=== PATIENT | female | born 1990 | race Caucasian/White ===

== ENCOUNTER 2021-03-08 09:40 | Emergency (ER) | payer SELFPAY ==
--- OUTSIDE RECORDS SUMMARY | 2021-03-08 09:43 | XMS REPORT | Continuity of Care Document ---
:1990 Author Organization [facility] t Address [address] [place] [address] Care Team Providers Name Role Phone WAI Attending Clinician Unavailable BRIAN Attending Clinician Unavailable WAI Admitting Clinician Unavailable OSCAR Admitting Clinician Unavailable EARNEST Admitting Clinician Unavailable Problems Condition Condition Condition Status Onset Resolution Last Treating Co mments Source Name Details Category Date Date Treatment Clinician Date Dyspnea Dysp[facility] Problem [facility] ([facility]) Acute Acute Problem Active [facility] anxiety [facility] (LUF/LI V/SA) Seizure Seizure Problem [facility] (LUF/LI V/SA) Abdominal Abdominal Problem Active [facility] (LUF/LI V/SA) Seizure Seizure Problem [facility] (LUF/LI V/SA) Allergies, Adverse Reactions, Alerts This patient has no known allergies or adverse reactions. Social History Smoking Status Start Date Stop Date Source Never sm[facility] (LUF/[facility]/SA) Medications Ordered Filled Start Stop Current Ordering Indication Dosage Frequency Signature Comments Components Source Medication Medication Date Date Medication? Clinician (SIG) Name Name lamotrigine lamotrigine Yes 25mg 1xD orally [facility] Levetiracet Levetiracet Yes 1000mg 2xD orally [address] [facility] am times per [facility]SA) Vital Signs Vital Name Observation Time Observation Value Comments Source O2% BldC Oximetry 2019-11-16 04:21:00 100 % [facility] (LUF/TANISHA/SA) Pulse Rate 2019-11-16 04:20:00 86 /min [facility] (LUF/TANISHA/SA) Respiratory Rate 2019-11-16 04:20:00 14 /min [facility] (LUF/TANISHA/SA) BP Systolic 2019-11-16 04:20:00 125 mm[Hg] [facility] (LUF/TANISHA/SA) BP Diastolic 2019-11-16 04:20:00 73 mm[Hg] [facility] (LUF/TANISHA/SA) Body Temperature 2019-11-16 02:47:00 98.4 [degF] [facility] (LUF/TANISHA/SA) Height 2019-11-16 02:47:00 63 [in_i] [facility] (LUF/TANISHA/SA) Weight 2019-11-16 02:47:00 115 kg [facility] (LUF/TANISHA/SA) BMI (Body Mass Index) 2019-11-16 02:47:00 44.9 kg/m2 [facility] (LUF/TANISHA/SA) Pulse Rate 2018-11-05 00:37:00 95 /min [facility] (LUF/TANISHA/SA) BP Systolic 2018-11-05 00:37:00 138 mm[Hg] [facility] (LUF/TANISHA/SA) BP Diastolic 2018-11-05 00:37:00 73 mm[Hg] [facility] (LUF/TANISHA/SA) Body Temperature 2018-11-05 00:33:00 97.9 F [facility] (LUF/TANISHA/SA) O2% BldC Oximetry 2018-11-05 00:33:00 95 % [facility] (LUF/TANISHA/SA) Height 2018-11-05 00:33:00 66 in [facility] (LUF/TANISHA/SA) Weight Measured 2018-11-05 00:33:00 220 lbs [facility] Re[facility] (LUF/TANISHA/SA) BMI (Body Mass Index) 2018-11-05 00:33:00 35.7 kg/m2 [facility] (LUF/TANISHA/SA) Respiratory Rate 2018-11-04 23:45:00 15 /min [facility] (LUF/TANISHA/SA) Pulse Rate 2018-09-20 13:22:00 84 /min [facility] (LUF/TANISHA/SA) Respiratory Rate 2018-09-20 13:22:00 22 /min [facility] (LUF/TANISHA/SA) O2% BldC Oximetry 2018-09-20 13:22:00 97 % [facility] (LUF/TANISHA/SA) BP Systolic 2018-09-20 13:22:00 119 mm[Hg] [facility] (LUF/TANISHA/SA) BP Diastolic 2018-09-20 13:22:00 73 mm[Hg] [facility] (LUF/TANISHA/SA) Body Temperature 2018-09-20 11:01:00 97 F [facility] (LUF/TANISHA/SA) Height 2018-09-20 11:01:00 66 in [facility] (LUF/TANISHA/SA) Weight Measured 2018-09-20 11:01:00 249.91 lbs [facility] (LUF/TANISHA/SA) BMI (Body Mass Index) 2018-09-20 11:01:00 40.6 kg/m2 [facility] (LUF/TANISHA/SA) Pulse Rate 2018-08-19 07:55:00 68 /min [facility] (LUF/TANISHA/SA) Respiratory Rate 2018-08-19 07:55:00 13 /min [facility] (LUF/TANISHA/SA) BP Systolic 2018-08-19 07:55:00 110 mm[Hg] [facility] (LUF/TANISHA/SA) BP Diastolic 2018-08-19 07:55:00 49 mm[Hg] [facility] (LUF/TANISHA/SA) Body Temperature 2018-08-19 06:32:00 97.9 F [facility] (LUF/TANISHA/SA) O2% BldC Oximetry 2018-08-19 06:32:00 100 % [facility] (LUF/TANISHA/SA) Height 2018-08-19 06:32:00 66 in [facility] (LUF/TANISHA/SA) Weight Measured 2018-08-19 06:32:00 250 lbs [facility] (LUF/TANISHA/SA) BMI (Body Mass Index) 2018-08-19 06:32:00 40.6 kg/m2 [facility] (LUF/TANISHA/SA) Procedures This patient has no known procedures. Encounters Start End Encounter Admission Attending Care Care Encounter Source Date/Time Date/Time Type Type Clinicians Facility Department ID 2019-11-16 2019-11-16 ANXIETY 1 CARRENOJUICE [facility] [id number] 02:46:00 04:40:00 DISORDER [facility], [address], ([place] [address] 2018-11-05 2018-11-05 EPILEPSY ZIBUBAHMANKY, [facility] [id number] [facility] [address] 00:32:00 02:26:00 UNS NOT ARACELY MICHELET Cha ukes - INTRACT N, [address], (LUF[place] [address] 2018-09-20 2018-09-20 LOWER 1 OSCAR PEREZ [facility] [id number] [facility] [address] 10:49:00 13:50:00 ABDOMINAL MICHELET Billingsley - PAIN N, [address], ([place] [address] 2018-08-19 2018-08-19 EPILEPSY 3 EARNEST, [facility] [id number] 06:17:00 08:13:00 UNS NOT MALIA MICHELET RICHARDS L [facility] - INTRACT N, [address], (LUF[place] [address] Results Test Description Test Time Test Comments Results Result Sourc e Comments XR CHEST AP/PA 1 2019-11-16 EXAMINATION: XR CHEST VIEW 06:15:40 AP/PA 1 VIEWINDICATION: [id number]: DyspneaCOMPARISON: NoneFINDINGS:TUBES and LINES: None.LUNGS: Low lung volumes. Lungs are clear. No consolidations.PLEURA: No pleural effusion or pneumothorax.HEART AND MEDIASTINUM: The cardiomediastinal silhouette is unremarkable.BONES AND SOFT TISSUES: No acute osseous lesion. Soft tissues areunremarkable.UPPER ABDOMEN: No free air under the diaphragm.IMPRESSION:Lo w lung volumes.This final report was electronically signed by Dr Arben Barrientos DO 11/16/20196:09 AMDictated By: ARBEN BARRIENTOSDate: 11/16/2019 06:09 DRUG SCREEN MED 2019-11-16 04:30:00 Test Item Value Reference Range Interpretation Comme nts PH (test code = UPH) 6.0 Specific Archer (test >=1.030 code = USPGR) FT (test code = AMPHET) Negative (qualifier value) FT (test code = SALLY) Negative (qualifier value) FT (test code = BENZO) Negative (qualifier value) FT (test code = HOSSEIN) Negative (qualifier value) FT (test code = MTD) Negative (qualifier value) FT (test code = OPIAT) Negative (qualifier value) FT (test code = PCP) Negative (qualifier The following table provides an value) interpretive gu trey for the Drugs of Abuse ran on the Siemens [place] a nalyzer listed there in: A mphetamines < 1000 ng/ml = Negative Barbituates < 200 ng/ml = Negative B enzodiazapines < 200 ngml = Negative Cocaine < 300 ng/ml = Negative M ethadone < 300 ng/ml = Negative Opiate < 300 ng/ml = Negative P CP < 25 ng/ml = Negative THC < 50 ng/ml = Negative Resul ts equal to or greater than th e above cut-off values = Presum ptive Positive. Confirmation of Presumptive Positive result s are available upon request. FT (test code = THC) Negative (qualifier value) URINALYSIS WITH [id number] 04:15:00 Test Item Value Reference Range Interpretation Comments Color (test code = UCOLR) Yellow Clarity (test code = UCLAR) Clear Glucose (test code = UGLUC) NEGATIVE NEGATIVE N Bilirubin (test code = UBILI) NEGATIVE NEGATIVE N Ketones (test code = UKET) TRACE NEGATIVE A Specific Archer (test code = >=1.030 1.005-1.030 A USPGR) Blood (test code = UBLD) NEGATIVE NEGATIVE N PH (test code = UPH) 6.0 4.5-8.0 A Protein (test code = UPROT) NEGATIVE NEGATIVE N Urobilinogen (test code = U UROB) 0.2 >0.2 N Nitrite (test code = UNITR) NEGATIVE NEGATIVE N Leukocyte Esterase (test code = NEGATIVE NEGATIVE N ULEUK) WBC (test code = WBCUR) None seen 0-5 A RBC (test code = RBCUR) None seen 0-5 A Epithial Cells (test code = U EPI) 5-10 0-10 A Bacteria (test code = UBACT) None seen None Seen,Trace A TEST, Urine [id number] 04:08:00 Test Item Value Reference Range Interpretation Comments (Urine) (test code = Negative PREGU) CT ABDOMEN/PELVIS [id number] 13:06:50NPO 4 hours. Do not withhold meds CT of the abdomen and pelvis with contrast:History: Pelvic painMultidetector CT of the abdomen and pelvis was performed following intravenousinjection of 100 mL of Isovue-300. Dose reduction technique was employed usingautomated exposure control and adjustment of mA and/or kV according to patientsize.Total DLP 1438 mGy-cm.The visualized lung bases are unremarkable.The liver, spleen, pancreas, gallbladder, adrenals, kidneys and abdominal aortaappear within normal limitsThe bladder is unremarkable. The appendix appears normal. An IUD is noted inplace. The bowel loops as visualized appear within normal limits.There is no lymphadenopathy. There is a very small amount of pelvic asciteswhich is within p hysiologic limits. Bilateral L5 pars interarticularis defectsare instilling noted without spondylolisthesis. There are no acute bonyabnormalities.Impression:1. No acute abnormality of the abdomen or pelvis.2. Very small amount of pelvic ascites is within physiologic limits.3. IUD in place.4. 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.This final report was electronically signed by Dr Stephanie JOHNSON 09/20/20181:00 PMDictated By: MATILDE HINTONDate: 09/20/2018 13:[id number] 12:08:00 Test Item Value Reference Range Interpretation Comments Glucose (test code 109 mg/dl 75-110 = GLU) BUN (test code = 10.0 mg/dl 6.0-17.0 BUN) Creatinine (test 0.6 mg/dl 0.4-1.2 code = CREA) Sodium (test code = 140 mmol/l 137-145 NA) Potassium (test 4.0 mmol/l 3.5-5.0 code = K) Chloride (test code 105 mmol/l 98-107 = CL) CO2 (test code = 28 mmol/l 22-30 CO2) Calcium (test code 8.9 mg/dl 8.4-10.2 = CALC) T Protein (test 7.4 gm/dl 5.1-8.7 code = TP) Albumin (test code 3.5 gm/dl 3.5-4.6 = ALB) A/G Ratio (test 0.9 % 1.1-2.2 L code = AGRAT) AST (SGOT) (test 21 U/L 11-36 code = AST) ALT (SGPT) (test 41 U/L 11-40 H code = ALT) Alkaline Phos (test 54 U/L 47-114 code = ALKP) Total Bilirubin 0.2 mg/dl 0.2-1.2 (test code = TBIL) Globulin (test code 3.9 gm/dl 2.3-3.5 H = GLOBU) Calcium, Corrected 9.3 mg/dl 8.4-10.2 Various f ormulas exist (test code = for corrected s elizabeth CALCCORR) calcium results , each yielding differ ent values. This corrected resul t was based on the fo rmula: Corrected Calci um = SerumCalcium + [0.8 * ( 4 - SerumAlbu min)] EGFR if >60 [place] (test code mL/min/1.73m\\ = EGFRAA) S\\2 EGFR if Non- >60 Estimate d Glomerular [place]ovan (test code mL/min/1.73m\\ Filtrat ion Rate (eGFR) = EGFRNA) S\\2 Reference Inter vals Decision Points for 18 years and older and average body ma ss: >= 60 Does not exc lude kidney disease. 30 - 59 Suggests modera te chronic kidney disease and indicat es the need for furthe r investigation including asses sment of proteinuria and cardiovascular factors. < 30 Usually in dicates a need for refe rral for assessment and management of c hronic kidney failure. [id number] 12:08:00 Test Item Value Reference Range Interpretation Comments Lipase (test code = LIPA) 186 U/L 8-223 TROPONIN-I [id number] 12:08:00 Test Item Value Reference Range Interpretation Comments Troponin-I (test <0.015 ng/ml 0.000-0.034 N The [address] Pe rcentile URL code = TROP) is 0.045 ng/mL for the Siemens [place] T roponin I. The Joint [place] Society of Cardiology/[facility] College of Card iology (ESC/ACC) and t javier [facility] of Clinical [place] rashaad Standards of La boratory Practices (NACB ) recommends that the diagnosis of AM I includes the presence of clinical history suggest [place] of Acute Coronary Syndrome (ACS) and a max imum concentration o f cardiac troponin exceed ing the 99th percentile of a normal referenc e population [upp er reference limit (URL)] on at least one oc casion during the firs t 24 hours after the clini johny event. URINALYSIS WITH [id number] 11:49:00 Test Item Value Reference Range Interpretation Comments Color (test code = LT. YELLOW UCOLR) Clarity (test code = CLEAR UCLAR) Glucose (test code = NEGATIVE NEGATIVE N UGLUC) Bilirubin (test code = NEGATIVE NEGATIVE N UBILI) Ketones (test code = NEGATIVE NEGATIVE N UKET) Specific Archer (test 1.020 1.005-1.030 A code = USPGR) Blood (test code = UBLD) NEGATIVE NEGATIVE N PH (test code = UPH) 8.5 4.5-8.0 A Protein (test code = NEGATIVE NEGATIVE N UPROT) Urobilinogen (test code 0.2 >0.2 N = U UROB) Nitrite (test code = NEGATIVE NEGATIVE N UNITR) Leukocyte Esterase (test NEGATIVE NEGATIVE N code = ULEUK) WBC (test code = WBCUR) 0-3 0-5 A RBC (test code = RBCUR) 0-1 0-5 A Epithial Cells (test 5-10 0-10 A code = U EPI) Mucous (test code = Trace None Seen A UMUC) Bacteria (test code = Trace None Seen,Trace N UBACT) Crystals Urine (test Trace Amorphous None Seen A code = URCRYS) Sediment TEST, Urine [id number] 11:46:00 Test Item Value Reference Range Interpretation Comments (Urine) (test code = Negative PREGU) If a specimen is collected by a nurse, then you MUST fill out the Collected and Collected By yadav CBC WITH AUTO [id number] 11:34:00 Test Item Value Reference Range Interpretation Comments WBC (test code = 11.80 4.80-10.80 H WBC) 10\\S\\3/ul RBC (test code = 4.89 10\\S\\6/ul 4.20-5.40 RBC) Hemoglobin (test 13.7 gm/dl 12.0-14.0 code = HGB) Hematocrit (test 42.1 % 37.0-47.0 code = HCT) MCV (test code = 86.1 fL 81.0-99.0 MCV) MCH (test code = 28.0 pg 27.0-31.0 MCH) MCHC (test code = 32.5 gm/dl 33.0-37.0 L MCHC) RDW (test code = 12.3 % 11.5-14.5 RDWVC) Platelet (test code 264 10\\S\\3/ul 130-400 = PLT) MPV (test code = 11.5 fL 7.4-10.4 A "NOT MEASUR ED" MPV) RESULTS ARE DIS PLAYED WHEN THE INSTRU MENT HAS A SUPPRESSE D OR UNREPORTABLE RE SULT. THIS WILL MOST OFTEN HAPPEN WITH THE MPV WHEN THERE IS A N ABNORMAL PLATEL ET DISTRIBUTION DU E TO A CRITICAL LOW VA LUE OR PLATELET CLUMPI NG. THE RDW MAY BE SUPPRESSED IF T HERE ARE MULTIPLE PE AKS PRESENT ON THE RBC HISTOGRAM. IN THIS CASE, A MANUAL REVIEW OF THE SLIDE WI LL BE PERFORMED, AND RBC MORPHOLOGY WILL BE NOTED ON THE RE PORT. NE% (test code = 65.9 % 42.0-75.0 NE) LY% (test code = 24.8 % 13.0-42.0 LY) MO% (test code = 6.7 % 4.0-14.0 MO) EO% (test code = 1.5 % 1.0-5.0 EO) BA% (test code = 0.5 % 0.0-3.0 BA) IG% (test code = 0.6 % 0.0-0.4 H IG%) CT HEAD W/O [id number] 07:49:32CT CERVICAL SPINE W/O CONTRAST, CT HEAD W/O CONTRASTOrdering Provider: JOSE L JERRYUniversity Hospitals Beachwood Medical Centertory: [phone]: Pain; seizure, right-sided neck pain with headacheComparison studies: None.Technique:Axial noncontrast CT images were obtained through the head and cervical spine.Coronal and sagittal reconstructionsobtained from the axial data. One or moreof the following dose reduction techniques were used: Automated exposurecontrol, adjustment of the mA and/or kV according to patient size, and/orutilization of iterative reconstruction technique.DISCUSSION:HEAD CT:Scalp/Skull:Unremarkable.Brain sulci: Appropriate for patient's age.Ventricles: Normal in size and configuration. No hydrocephalus.Extra-axial spaces:No masses or fluid collections.Parenchyma:No abnormal densities.No masses, hemorrhage, or large vascular territory acute infarct.Dural sinuses: No abnormal densities.Sellar/Suprasellar region: Intact.Skull base: Intact.Incidental findings:There is minimal mucosal thickening in the right maxillary sinus.CERVICAL SPINE CT:Cervical lordosis is straightened.There is no scoliosis or subluxation.No fractures, compression deformity, or destructive osseous lesions are seen.The craniocervical junction isintact.No gross spinal canal masses are seen.The paravertebral and paraspinal soft tissues are unrema rkable.The disc spaces are preserved.Incidental findings:The palatine tonsils are prominent. Approximately 1.1 cm nodular densityinseparable from the posterior right thyroid lobe is isodense to the thyroidgland; this may be an exophytic thyroid nodule.IMPRESSION:Head CT:No intracranial abnormalities.Ce rvical Spine:No acute osseous abnormalities in the cervical spine.This final report was electronically signed by Dr Justo Tamez MD 08/19/20187:43 AMDictated By: Hue TAMEZte: 08/19/2018 07:43CT CERVICAL SPINE W/O [id number] 07:49:29CT CERVICAL SPINE W/O CONTRAST, CT HEAD W/O CONTRASTOrdering Provider: JOSE L JERRYUniversity Hospitals Beachwood Medical Centertory: [phone]: Pain; seizure, right- sided neck pain with headacheComparison studies: None.Technique:Axial noncontr ast CT images were obtained through the head and cervical spine.Coronal and sagittal reconstructionsobtained from the axial data. One or moreof the following dose reduction techniques were used: Automated exposurecontrol, adjustment of the mA and/or kV according to patient size, and/orutilization of iterative reconstruction technique.DISCUSSION:HEAD CT:Scalp/Skull:Unremarkable.Brain sulci: Appropriate for patient's age.Ventricles: Normal in size and configuration. No hydrocephalus.Extra-axial spaces:No masses or fluid collections.Parenchyma:No abnormal densities.No masses, hemorrhage, or large vascular territory acute infarct.Dural sinuses: No abnormal densities.Sellar/Suprasellar region: Intact.Skull base: Intact.Incidental findings:There is minimal mucosal thickening in the right maxillary sinus.CERVICAL SPINE CT:Cervical lordosis is straightened.There is no scoliosis or subluxation.No fractures, compression deformity, or destructive osseous lesions are seen.The craniocervical junction isintact.No gross spinal canal masses are seen.The paravertebral and paraspinal soft tissues are unrema rkable.The disc spaces are preserved.Incidental findings:The palatine tonsils are prominent. Approximately 1.1 cm nodular densityinseparable from the posterior right thyroid lobe is isodense to the thyroidgland; this may be an exophytic thyroid nodule.IMPRESSION:Head CT:No intracranial abnormalities.Ce rvical Spine:No acute osseous abnormalities in the cervical spine.This final report was electronically signed by Dr Justo Tamez MD 08/19/20187:43 AMDictated By: Leida TAMEZ: 08/19/2018 07:[id number] 07:41:00 Test Item Value Reference Range Interpretation Comments Glucose (test code 85 mg/dl 75-110 = GLU) BUN (test code = 10.0 mg/dl 6.0-17.0 BUN) Creatinine (test 0.7 mg/dl 0.4-1.2 code = CREA) Sodium (test code = 140 mmol/l 137-145 NA) Potassium (test 3.6 mmol/l 3.5-5.0 code = K) Chloride (test code 106 mmol/l 98-107 = CL) CO2 (test code = 27 mmol/l 22-30 CO2) Calcium (test code 9.1 mg/dl 8.4-10.2 = CALC) T Protein (test 7.9 gm/dl 5.1-8.7 code = TP) Albumin (test code 3.8 gm/dl 3.5-4.6 = ALB) A/G Ratio (test 0.9 % 1.1-2.2 L code = AGRAT) AST (SGOT) (test 28 U/L 11-36 code = AST) ALT (SGPT) (test 56 U/L 11-40 H code = ALT) Alkaline Phos (test 58 U/L 47-114 code = ALKP) Total Bilirubin 0.2 mg/dl 0.2-1.2 (test code = TBIL) Globulin (test code 4.1 gm/dl 2.3-3.5 H = GLOBU) Calcium, Corrected 9.3 mg/dl 8.4-10.2 Various f ormulas exist (test code = for corrected s elizabeth CALCCORR) calcium results , each yielding differ ent values. This corrected resul t was based on the fo rmula: Corrected Calci um = SerumCalcium + [0.8 * ( 4 - SerumAlbu min)] EGFR if >60 [place] (test code mL/min/1.73m\\ = EGFRAA) S\\2 EGFR if Non- >60 Estimate d Glomerular [place]ovan (test code mL/min/1.73m\\ Filtrat ion Rate (eGFR) = EGFRNA) S\\2 Reference Inter vals Decision Points for 18 years and older and average body ma ss: >= 60 Does not exc lude kidney disease. 30 - 59 Suggests modera te chronic kidney disease and indicat es the need for furthe r investigation including asses sment of proteinuria and cardiovascular factors. < 30 Usually in dicates a need for refe rral for assessment and management of c hronic kidney failure.
--- NOTE | 2021-03-08 10:05 | ER ---
Nurse's Notes [facility] Name: Latosha Sifuentes Age: 30 yrs Sex: Female : 1990 Arrival Date: 03/08/2021 Time: 09:43 Bed Waiting Private MD: Diagnosis: ED Course: 03/08 09:43 Patient arrived in ED. ds1 09:47 Stef Lara MD is Attending Physician. rn Administered Medications: No medications were administered Outcome: 10:04 Patient left the ED. da3 Signatures: Mitzi Bautista ds1 Stef Lara MD MD rn Allan, David, RN RN da3
== END 2021-03-08 10:04 | disposition left against medical advice (07) ==
LOC: ER 09:40
DX: Z02.9 Encounter for administrative examinations, unspecified (principal)

== ENCOUNTER 2021-05-04 22:00 | Emergency (ER) | payer SELFPAY ==
--- NOTE | 2021-05-04 22:48 | EDPHYS ---
Physician Documentation [facility] Name: Latosha Sifuentes Age: 30 yrs Sex: Female : 1990 Arrival Date: 05/04/2021 Time: 22:03 Bed 28 Private MD: ED Physician Leora Huber HPI: 05/04 22:43 This 30 yrs old Female presents to ER via Ambulatory with complaints of Eye jr8 Swelling, Redness of Eye, Drainage From Eye, Eye Pain. 22:43 Onset: The symptoms/episode began/occurred acutely, yesterday. Associated signs and jr8 symptoms: Pertinent positives: None. Patient does not utilize any form of vision correction. The patient has not experienced similar symptoms in the past. The patient has not recently seen a physician. Patient denies trauma or foreign body to affected eye. Stated that she noticed it to start hurting yesterday and then become slightly swollen. Progressed today . 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 - Social history:: Smoking status: Patient denies any tobacco usage or history of. Patient uses alcohol, occasionally. ROS: 22:43 Constitutional: Negative for fever, chills, and weight loss. jr8 22:43 ENT: Negative for injury, pain, and discharge, Neck: Negative for injury, pain, and swelling, Cardiovascular: Negative for chest pain, palpitations, and edema, Respiratory: Negative for shortness of breath, cough, wheezing, and pleuritic chest pain. 22:43 Eyes: Positive for pain, redness, swelling, tearing, of the left eye. 22:43 All other systems are negative. Exam: 22:43 Visual Acuity: Visual acuity is within normal limits. jr8 22:43 Constitutional: This is a well developed, well nourished patient who is awake, alert, and in no acute distress. Head/Face: Normocephalic, atraumatic. ENT: Nares patent. No nasal discharge, no septal abnormalities noted. Tympanic membranes are normal and external auditory canals are clear. Oropharynx with no redness, swelling, or masses, exudates, or evidence of obstruction, uvula midline. Mucous membranes moist. Neck: Trachea midline, no thyromegaly or masses palpated, and no cervical lymphadenopathy. Supple, full range of motion without nuchal rigidity, or vertebral point tenderness. No Meningismus. Chest/axilla: Normal chest wall appearance and motion. Nontender with no deformity. No lesions are appreciated. Respiratory: Lungs have equal breath sounds bilaterally, clear to auscultation and percussion. No rales, rhonchi or wheezes noted. No increased work of breathing, no retractions or nasal flaring. Skin: Warm, dry with normal turgor. Normal color with no rashes, no lesions, and no evidence of cellulitis. MS/ Extremity: Pulses equal, no cyanosis. Neurovascular intact. Full, normal range of motion. Neuro: Awake and alert, GCS 15, oriented to person, place, time, and situation. Cranial nerves II-XII grossly intact. Motor strength 5/5 in all extremities. Sensory grossly intact. 22:43 Eyes: Periorbital structures: appear normal, Pupils: equal, round, and reactive to light and accomodation, Extraocular movements: intact throughout, Conjunctiva: chemosis, that is mild, in left eye, at 3 o'clock, injected, in the left eye, tearing noted, in left eye, Corneas: are normal, Sclera: no appreciated abnormality, Anterior chamber: normal, no hyphema, Lids and lashes: appear normal, Examination of the other eye reveals no obvious gross abnormality. Vital Signs: 22:09 BP 143 / 74 LA Sitting (auto/lg); Pulse 87 MON; Resp 18 S; Temp 98.0(O); Pulse Ox 98% bs2 on R/A; Weight 127.01 kg (R); Height 5 ft. 6 in. (167.64 cm) (R); Pain 6/10; 22:20 BP 147 / 87; Pulse 83; Resp 20; Temp 98; Pulse Ox 99% on R/A; kc4 22:50 BP 125 / 77; Pulse 79; Resp 20; Temp 97.9; Pulse Ox 100% on R/A; cc4 22:09 Body Mass Index 45.19 (127.01 kg, 167.64 cm) bs2 Visual Acuity: 22:47 Left Eye Visual acuity 20/15, Pupil size 3 mm, ; Right Eye Visual acuity 20/10, Pupil cc4 size 3 mm, ; Both Eyes Visual acuity 20/102; Without Lenses; MDM: 22:18 Patient medically screened. jr8 22:43 Data reviewed: vital signs, nurses notes, and as a result, I will discharge patient. jr8 Data interpreted: Pulse oximetry: on room air is 99 %. Interpretation: normal. Counseling: I had a detailed discussion with the patient and/or guardian regarding: the historical points, exam findings, and any diagnostic results supporting the discharge/admit diagnosis, the need for outpatient follow up, an opthalmologist, to return to the emergency department if symptoms worsen or persist or if there are any questions or concerns that arise at home. Administered Medications: 22:45 Drug: Gentamicin Drops 0.3 % 2 drops Route: Ophthalmic; Site: left eye; kc4 Disposition: 05/05 03:00 Co-signature as Attending Physician, Leora Huber MD. ma2 Disposition Summary: 05/04/21 22:47 Discharge Ordered Location: Home jr8 Problem: new jr8 Symptoms: have improved jr8 Condition: Stable jr8 Diagnosis - Unspecified conjunctivitis jr8 - Chemosis left eye jr8 Followup: jr8 - With: Jovita Kim MD - When: 5 - 6 days - Reason: Recheck today's complaints, Continuance of care, Re-evaluation by your physician Discharge Instructions: - Discharge Summary Sheet jr8 - Bacterial Conjunctivitis, Adult jr8 Forms: - Medication Reconciliation Form jr8 - Thank You Letter jr8 - Antibiotic Education jr8 - Prescription Opioid Use jr8 Prescriptions: - Gentamicin 0.3 % Ophthalmic Drops - instill 2 drops by OPHTHALMIC route every 4 hours for 7 days; 1 bottle; jr8 Refills: 0, Product Selection Permitted Signatures: Eitan Sutherland PA PA jr8 Leora Huber MD MD ma2 Lupe Loza, ALEXANDER RN bs2 Mariam Hartley kc4 Corrections: (The following items were deleted from the chart) 05/04 22:15 22:14 PSHx: None; bs2 bs2
--- NOTE | 2021-05-04 22:48 | ER ---
Nurse's Notes [facility] Name: Latosha Sifuentes Age: 30 yrs Sex: Female : 1990 Arrival Date: 05/04/2021 Time: 22:03 Bed 28 Private MD: Diagnosis: Unspecified conjunctivitis;Chemosis left eye Presentation: 05/04 22:09 Chief complaint: Patient states: LT eye red swollen and painful. Coronavirus screen: At bs2 this time, the client does not indicate any symptoms associated with coronavirus-19. Ebola Screen: No symptoms or risks identified at this time. Mechanism of Injury: No Mechanism of Injury. The patient reports a positive loss of vision. Initial Sepsis Screen: Does the patient meet any 2 criteria? No. Patient's initial sepsis screen is negative. Does the patient have a suspected source of infection? No. Patient's initial sepsis screen is negative. Risk Assessment: Do you want to hurt yourself or someone else? Patient reports no desire to harm self or others. Onset of symptoms was May 03, 2021. 22:09 Method Of Arrival: Ambulatory bs2 22:09 Acuity: IDRIS 4 bs2 Triage Assessment: 22:14 General: Appears in no apparent distress. uncomfortable, obese, well groomed, well bs2 developed, well nourished, Behavior is calm, cooperative, appropriate for age. Pain: Complains of pain in left ear, left zygomatic area and left eye Pain currently is 6 out of 10 on a pain scale. EENT: Reports blurred vision in left outer canthus and outer aspect of conjuctiva of left eye. 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 - Social history:: Smoking status: Patient denies any tobacco usage or history of. Patient uses alcohol, occasionally. Screenin:20 Abuse screen: Denies threats or abuse. Nutritional screening: No deficits noted. kc4 Tuberculosis screening: No symptoms or risk factors identified. Fall Risk None identified. Assessment: 22:20 General: Appears uncomfortable, Behavior is calm, cooperative. Pain: Complains of pain kc4 in face and left eye Left side of face with small amt. edema with tenderness noted of anterior left ear area; redness noted left sclera with "watering" noted left eye since er; denies any injury; reports "blurry" left eye vision. Pain currently is 3 out of 10 on a pain scale. at worst was 6 out of 10 on a pain scale. Quality of pain is described as aching, Reports pain of left eye upon blinking of left eyelids or attempting to look to the left. Pain began yesterday Is intermittent. 22:20 EENT: Eyes are tearing on outer aspect of conjuctiva of left eye and inner aspect of kc4 conjunctiva of left eye Sclera/Cornea are reddened in outer aspect of conjuctiva of left eye and inner aspect of conjunctiva of left eye Small amt edema noted left eyelids and left side of face anterior left ear that started yesterday.. Vital Signs: 22:09 BP 143 / 74 LA Sitting (auto/lg); Pulse 87 MON; Resp 18 S; Temp 98.0(O); Pulse Ox 98% bs2 on R/A; Weight 127.01 kg (R); Height 5 ft. 6 in. (167.64 cm) (R); Pain 6/10; 22:20 BP 147 / 87; Pulse 83; Resp 20; Temp 98; Pulse Ox 99% on R/A; kc4 22:50 BP 125 / 77; Pulse 79; Resp 20; Temp 97.9; Pulse Ox 100% on R/A; cc4 22:09 Body Mass Index 45.19 (127.01 kg, 167.64 cm) bs2 Visual Acuity: 22:47 Left Eye Visual acuity 20/15, Pupil size 3 mm, ; Right Eye Visual acuity 20/10, Pupil cc4 size 3 mm, ; Both Eyes Visual acuity 20/102; Without Lenses; ED Course: 22:03 Patient arrived in ED. ja2 22:14 Triage completed. bs2 22:14 Arm band placed on left wrist. bs2 22:18 Eitan Sutherland PA is PHCP. jr8 22:18 Leora Huber MD is Attending Physician. jr8 22:18 Mariam Hartley is Primary Nurse. kc4 22:20 Patient has correct armband on for positive identification. Bed in low position. Call [facility] light in reach. Side rails up X 1. 22:47 Jovita Kim MD is Referral Physician. jr8 22:48 Assist provider with eye exam of left eye. Patient did not have IV access during this [facility] emergency room visit. Administered Medications: 22:45 Drug: Gentamicin Drops 0.3 % 2 drops Route: Ophthalmic; Site: left eye; 4 Outcome: 22:20 Condition: stable kc4 22:47 Discharge ordered by MD. jr8 22:50 Discharged to home ambulatory. cc4 22:50 Condition: stable 22:50 Discharge instructions given to patient, Instructed on discharge instructions, follow up and referral plans. medication usage, Demonstrated understanding of instructions, follow-up care, medications, Prescriptions given X 1. 22:59 Patient left the ED. cc4 Signatures: Eitan Sutherland PA PA 8 Lupe Loza, RN RN bs2 Mariam Hartley 4 Carol Burt [facility] Kaela Brush, RN RN cc4 Corrections: (The following items were deleted from the chart) 22:15 22:14 PSHx: None; bs2 bs2
[2021-05-04] MEDS ORDERED: GENTAMICIN 0.3% OPTH DROP 5ML ONE (23:10)
[2021-05-04 23:25] VITALS: BP 125/77; TEMP 97.9; O2SAT 100
== END 2021-05-04 22:59 | disposition home or self-care (01) ==
LOC: ER 22:00
DX: H10.9 Unspecified conjunctivitis (principal); H11.422 Conjunctival edema, left eye; Z88.2 Allergy status to sulfonamides
CPT/HCPCS: 99283

== ENCOUNTER 2021-05-05 05:15 | Emergency (ER) | payer SELFPAY ==
[2021-05-05] MEDS ORDERED: TETRACAINE HCL 0.5% 4ML OPTH ONE (06:12)
[2021-05-05] MEDS ORDERED: FLUORESCEIN SODIUM 1 MG/WRAP ONE (06:14)
--- NOTE | 2021-05-05 06:16 | EDPHYS ---
Physician Documentation [facility] Name: Latosha Sifuentes Age: 30 yrs Sex: Female : 1990 Arrival Date: 05/05/2021 Time: 05:18 Bed 5 Private MD: ED Physician Leora Huber HPI: 05/05 05:57 This 30 yrs old Female presents to ER via Ambulatory with complaints of Eye ma2 Swelling, Eye Problem. 05:57 Onset: The symptoms/episode began/occurred gradually, 4 day(s) ago. Associated signs ma2 and symptoms: Pertinent negatives: dizziness, ear ache, headache, runny nose. Severity of symptoms: At their worst the symptoms were mild in the emergency department the symptoms are unchanged. The patient has not experienced similar symptoms in the past. Has left eye redness and pain, and lid swelling, gradually for 4 days, pain is mild. 06:03 Patient was seen few hours ago, with left eye redness and pain, diagnosed with ma2 conjunctivitis and was given gentamicin eyedrop in the ER, and was told to continue the eyedrop and follow-up with dry cell and battery assembler. Patient return to ER patient returned to ER because she has mild left eyelid swelling, and she inquires how to put eyedrops in the presence of the eyelid swelling since her eye eye does not open. The swelling has been gradual over the last 4 hours.. Historical: - Allergies: 05:23 Sulfa (Sulfonamide Antibiotics); bs2 - PMHx: 05:23 Asthma; Seizure; bs2 - PSHx: 05:23 Lumbar surgery; bs2 - Immunization history:: Adult Immunizations not up to date, Client reports having NOT received the Covid vaccine. - Social history:: Smoking status: Patient denies any tobacco usage or history of. Patient/guardian denies using alcohol, street drugs, The patient lives with family. - Family history:: not pertinent. ROS: 06:03 Constitutional: Negative for fever, chills, and weight loss, Cardiovascular: Negative ma2 for chest pain, palpitations, and edema, Respiratory: Negative for shortness of breath, cough, wheezing, and pleuritic chest pain. 06:03 All other systems are negative. Exam: 06:03 Visual Acuity: Visual acuity is within normal limits. ma2 06:03 Constitutional: This is a well developed, well nourished patient who is awake, alert, and in no acute distress. Head/Face: Normocephalic, atraumatic. ENT: Nares patent. No nasal discharge, no septal abnormalities noted. Tympanic membranes are normal and external auditory canals are clear. Oropharynx with no redness, swelling, or masses, exudates, or evidence of obstruction, uvula midline. Mucous membranes moist. Neck: Trachea midline, no thyromegaly or masses palpated, and no cervical lymphadenopathy. Supple, full range of motion without nuchal rigidity, or vertebral point tenderness. No Meningismus. 06:03 Eyes: Periorbital structures: swelling, that is mild, Pupils: equal, round, and reactive to light and accomodation, Extraocular movements: intact throughout, Conjunctiva: injected, in the left eye, Corneas: are normal, Sclera: no appreciated abnormality, Anterior chamber: normal, Lids and lashes: appear normal, funduscopic exam reveals no obvious abnormalities, Visual yadav: are intact, Examination of the other eye reveals no obvious gross abnormality, Intraocular pressure: left eye = 16mmHg, . 06:03 Eyes: there is mild left eyelid and periorbital swelling, without erythema,. There is ma2 injected conjunctive a. Otherwise eye exams unremarkable, as stated intraocular pressure is within normal limits, extraocular movement is intact and not painful, pupils are equal reactive to light accommodation and round. Wood lamp exam was done with fluorescein and tetracaine was injected, exam was unremarkable. There is no sign of orbital cellulitis such as proptosis chemosis limited extraocular movement, pain with movement, or double vision. As stated visual acuity is 20/20 bilaterally. Patient has a bottle of gentamicin eyedrop that was given in the prior ER visit. I will add Augmentin, and pain control for possible early periorbital cellulitis. Given the eyelid swelling. However she will need to follow-up with an dry cell and battery assembler senior grant writer. I instructed her to call Dr. Pasha Loaiza at 830, that is 2 hours from now. And go to the clinic in the morning. I also instructed her to return to ER if any symptoms worsen. I instructed her that this could be an early eye condition and it is important to be aware of any changes and return to ER for any worsening.. Vital Signs: 05:25 BP 129 / 73 RA Sitting (auto/lg); Pulse 79 MON; Resp 18 S; Temp 98.2(O); Pulse Ox 98% bs2 on R/A; Weight 127.01 kg; Height 5 ft. 6 in. (167.64 cm); Pain 10/10; 06:28 BP 125 / 70; Pulse 82; Resp 15; Temp 98.9(O); Pulse Ox 100% on R/A; Pain 3/10; bc5 05:25 Body Mass Index 45.19 (127.01 kg, 167.64 cm) bs2 [place] Coma Score: 05:30 Eye Response: spontaneous(4). Verbal Response: oriented(5). Motor Response: obeys cw2 commands(6). Total: 15. MDM: 05:37 Patient medically screened. ma2 06:03 Differential diagnosis: Acute iritis of Ultraviolet keratitis in. ma2 06:03 Data reviewed: vital signs, nurses notes. Counseling: I had a detailed discussion with ma the patient and/or guardian regarding: the historical points, exam findings, and any diagnostic results supporting the discharge/admit diagnosis, the presence of at least one elevated blood pressure reading (>120/80) during this emergency department visit, the need for outpatient follow up. Response to treatment: the patient's symptoms have markedly improved after treatment. Administered Medications: No medications were administered Disposition Summary: 05/05/21 06:15 Discharge Ordered Location: Home ma2 Condition: Stable ma2 Diagnosis - Ocular pain, left eye - with redness ma2 Followup: ma2 - With: Pasha Loaiza MD - When: Today - Reason: Continuance of care Discharge Instructions: - Discharge Summary Sheet ma2 - How to Use Eye Drops and Eye Ointments ma2 Forms: - Medication Reconciliation Form ma2 - Thank You Letter ma2 - Antibiotic Education ma2 - Prescription Opioid Use ma2 - Work release form bc5 Prescriptions: - Augmentin 875-125 mg Oral Tablet - take 1 tablet by ORAL route every 12 hours for 10 days; 20 tablet; Refills: 0, ma2 Product Selection Permitted - Diclofenac Sodium 75 mg Oral Tablet Sustained Release - take 1 tablet by ORAL route 2 times per day; 30 tablet; Refills: 0, Product ma2 Selection Permitted Signatures: Leora Huber MD MD ma2 Lupe Loza, RN RN bs2
--- NOTE | 2021-05-05 06:16 | ER ---
Nurse's Notes [facility] Name: Latosha Sifuentes Age: 30 yrs Sex: Female : 1990 Arrival Date: 05/05/2021 Time: 05:18 Bed 5 Private MD: Diagnosis: Ocular pain, left eye-with redness Presentation: 05/05 05:22 Chief complaint: Patient states: pt states eye is worse, more swollen and painfull. bs2 Coronavirus screen: At this time, the client does not indicate any symptoms associated with coronavirus-19. Ebola Screen: No symptoms or risks identified at this time. Initial Sepsis Screen: Does the patient meet any 2 criteria? No. Patient's initial sepsis screen is negative. Does the patient have a suspected source of infection? No. Patient's initial sepsis screen is negative. Risk Assessment: Do you want to hurt yourself or someone else? Patient reports no desire to harm self or others. Onset of symptoms was May 04, 2021. 05:22 Method Of Arrival: Ambulatory bs2 05:22 Acuity: IDRIS 5 bs2 Triage Assessment: 05:23 General: Appears uncomfortable, obese, Behavior is cooperative, appropriate for age. bs2 Pain: Complains of pain in left eye Pain currently is 10 out of 10 on a pain scale. Historical: - Allergies: 05:23 Sulfa (Sulfonamide Antibiotics); bs2 - PMHx: 05:23 Asthma; Seizure; bs2 - PSHx: 05:23 Lumbar surgery; bs2 - Immunization history:: Adult Immunizations not up to date, Client reports having NOT received the Covid vaccine. - Social history:: Smoking status: Patient denies any tobacco usage or history of. Patient/guardian denies using alcohol, street drugs, The patient lives with family. - Family history:: not pertinent. Screenin:30 Abuse screen: Denies threats or abuse. Nutritional screening: No deficits noted. cw2 Tuberculosis screening: No symptoms or risk factors identified. Fall Risk None identified. Assessment: 05:30 General: Appears in no apparent distress. Behavior is calm, cooperative. cw2 05:34 Reassessment: Pt c/o worsening eye pain and "new swelling and edema around my eye" Pt bc5 reports being scene for the same last night but was unable to tolerate "opening eye for my to put the drops in" Pt denies dizziness, N/V, ea pain at this time. A\\T\\O x 3, RR is even and unlabored, speaking in clear and complete sentences at this time. EENT: Eyes are tearing on iris of left eye Reports pain in left eye. Vital Signs: 05:25 BP 129 / 73 RA Sitting (auto/lg); Pulse 79 MON; Resp 18 S; Temp 98.2(O); Pulse Ox 98% bs2 on R/A; Weight 127.01 kg; Height 5 ft. 6 in. (167.64 cm); Pain 10/10; 06:28 BP 125 / 70; Pulse 82; Resp 15; Temp 98.9(O); Pulse Ox 100% on R/A; Pain 3/10; bc5 05:25 Body Mass Index 45.19 (127.01 kg, 167.64 cm) bs2 [place] Coma Score: 05:30 Eye Response: spontaneous(4). Verbal Response: oriented(5). Motor Response: obeys cw2 commands(6). Total: 15. ED Course: 05:18 Patient arrived in ED. bp1 05:23 Triage completed. bs2 05:23 Arm band placed on right wrist. bs2 05:29 Issa Tejeda, RN is Primary Nurse. cw2 05:30 No apparent distress. cw2 05:30 Patient has correct armband on for positive identification. Bed in low position. Call cw2 light in reach. Side rails up X2. 05:30 No provider procedures requiring assistance completed. cw2 05:37 Leora Huber MD is Attending Physician. ma2 06:14 Pasha Loaiza MD is Referral Physician. ma2 06:28 Patient did not have IV access during this emergency room visit. bc5 Administered Medications: No medications were administered Outcome: 05:30 Condition: good cw2 06:15 Discharge ordered by . ma2 06:28 Discharged to home ambulatory. bc5 06:28 Discharge instructions given to patient, Instructed on discharge instructions, follow up and referral plans. medication usage, Prescriptions given X 2. 06:28 Patient left the ED. bc5 Signatures: Leora Huber MD MD ma2 Kimberly Ward bp1 Lupe Loza, ALEXANDER RN bs2 Jasmin Lombardi RN RN bc5 Issa Tejeda, RN RN cw2
[2021-05-05 06:35] VITALS: BP 125/70; TEMP 98.9; O2SAT 100
== END 2021-05-05 06:28 | disposition home or self-care (01) ==
LOC: ER 05:15
DX: H57.12 Ocular pain, left eye (principal); Z88.2 Allergy status to sulfonamides
CPT/HCPCS: 99282